=== PATIENT | female | born 1985 | race Caucasian/White ===

== ENCOUNTER 2017-03-20 17:59 | Emergency (ER) | payer OTHER ==
[2017-03-20] MEDS ORDERED: SILVER NITRATE 1 APP APP TOPICAL ONE (18:23)
[2017-03-20] MEDS ORDERED: LIDOCAINE HCL/PF 1% 30 ML VIAL ONE ×2 (18:25→18:26)
--- NOTE | 2017-03-20 18:53 | ER NURSING DOCUMENTATION ---
Nurse's Notes [facility] Name:Nuria Lopez Age:32 yrs Sex:Female :1985 Arrival Date:03/20/2017 Time:17:59 Bed1 Private MD: Diagnosis:Finger Laceration Presentation: 03/20 18:06 Presenting complaint: Patient states: pt cut her left second finger with a potato st tamia. pt took of a section of skin from the side of the the finger pad. wound is bleeding steadily. Transition of care: Home. Complicating Factors: There are no complicating factors for this patient. 18:06 Acuity: DWAYNE 3 st 18:06 Method Of Arrival: Private Vehicle st Triage Assessment: 18:08 General: Appears in no apparent distress, Behavior is cooperative. Pain: Complains of st pain in palmar aspect of distal phalanx of left index finger Pain currently is 5 out of 10 on a pain scale. Injury Description: Avulsion sustained to palmar aspect of distal phalanx of left index finger is complete. Historical: - Allergies: Prednisone; - Home Meds: 1. Zoloft Oral - PMHx: DEPRESSION; ENDOMETROSIS; - PSHx: Appendectomy; HERNIA REPAIR; Appendectomy; - Tetanus: < 10 years. - Ebola Screening: : Patient denies exposure to infectious person. Patient denies travel to an Ebola-affected area in the 21 days before illness onset. . - Social history: Smoking status: Patient uses tobacco products, current every day smoker. Patient/guardian denies using alcohol, marijuana. Screenin:09 Infectious Disease Risk None. Abuse screen: Denies threats or abuse. Denies injuries st from another. pt feels safe at home. Nutritional screening: No deficits noted. Assessment: 18:34 General: wound still oozing after silver nitrate. Pressure dressing applied.. st Vital Signs: 18:03 BP 139 / 86 LA Sitting (auto/lg); Pulse 82 RA; Resp 18 S; Temp 98.6(O); Pulse Ox 94% on em3 R/A; Weight 90.72 kg (R); Height 5 ft. 3 in. (160.02 cm) (R); Pain 5/10; 18:03 Body Mass Index 35.43 (90.72 kg, 160.02 cm) em3 ED Course: 18:01 Patient arrived in ED. em3 18:02 Jeni Minaya, RN is Primary Nurse. st 18:05 Valuables Remains with patient Patient has correct armband on for positive em3 identification. Bed in low position. Call light in reach. 18:[address] 18:16 Rey Valle MD is Attending Physician. be 18:34 Wound care was dressed with cling, Tube Gauze Telfa. st Administered Medications: 18:09 Drug: Silver Nitrate Applicators 1 application; {Note: pulled and administered by Dr. Mendoza. .} Route: Topical; Site: wound; 18:51 Drug: Bacitracin Ointment (500 unit/g) 1 application; Route: Topical; Site: affected mk2 area; Outcome: 18:17 Discharge ordered by MD. be 18:51 Discharged to home ambulatory. mk2 18:51 Condition: good 18:51 Discharge Assessment: Patient awake, alert and oriented x 3. No cognitive and/or functional deficits noted. Patient verbalized understanding of disposition instructions. Pt is not bleeding through bandage. 18:51 Discharge instructions given to patient, Instructed on discharge instructions, follow up and referral plans. medication usage. 18:52 Patient left the ED. mk2 07/ 17:00 Discharge F/U Call: Spoke with: patient. Are you having any pain? yes. Pain level is sj 4 / 10 How are you managing your pain? Have you filled your prescriptions? n/a Did your discharge instructions answer all of your questions? yes Have you made a f/u appointment? No. Signatures: Jeni Minaya, RN Rey Rosenberg MD MD be Kruger, Meg, RN RN [facility] Jeet Torres em3 Lesia Antunez
--- NOTE | 2017-03-20 18:54 | ER PHYSICIAN DOCUMENTATION ---
Physician Documentation [facility] Name:Nuria Lopez Age:32 yrs Sex:Female :1985 Arrival Date:03/20/2017 Time:17:59 Bed1 Private MD: Rey Stephen Disposition: 03/20/17 18:17 Discharged to Home/Self Care. Impression: Finger Laceration. - Condition is Good. - Discharge Instructions: FINGER LACERATION - LACERATION, Hand. - Medical Reconciliation form form. - Follow up: Private Physician; When: As needed; Reason: Continuance of care. - Problem is new. - Symptoms have improved. Historical: - Allergies: Prednisone; - Home Meds: 1. Zoloft Oral - PMHx: DEPRESSION; ENDOMETROSIS; - PSHx: Appendectomy; HERNIA REPAIR; Appendectomy; - Tetanus: < 10 years. - Ebola Screening: : Patient denies exposure to infectious person. Patient denies travel to an Ebola-affected area in the 21 days before illness onset. . - Social history: Smoking status: Patient uses tobacco products, current every day smoker. Patient/guardian denies using alcohol, marijuana. Vital Signs: 03/20 18:03 BP 139 / 86 LA Sitting (auto/lg); Pulse 82 RA; Resp 18 S; Temp 98.6(O); Pulse Ox 94% on em3 R/A; Weight 90.72 kg (R); Height 5 ft. 3 in. (160.02 cm) (R); Pain 5/10; 18:03 Body Mass Index 35.43 (90.72 kg, 160.02 cm) em3 MDM: 18:16 Patient medically screened. be 03/20 18:16 Order name: Wound Care; Complete Time: 18:35 be Dispensed Medications: 18:09 Drug: Silver Nitrate Applicators 1 application; {Note: pulled and administered by Dr. Mendoza. .} Route: Topical; Site: wound; 18:51 Drug: Bacitracin Ointment (500 unit/g) 1 application; Route: Topical; Site: affected mk2 area; Signatures: Jeni Minaya RN RN st Elliott, Brian, MD MD be Kruger, Meg, RN RN [facility]
== END 2017-03-20 18:52 | disposition home or self-care (01) ==
LOC: ER 17:59
DX: S61.211A Laceration without foreign body of left index finger without damage to nail, initial encounter (principal); W27.4XXA Contact with kitchen utensil, initial encounter; Y92.010 Kitchen of single-family (private) house as the place of occurrence of the external cause; Y93.G1 Activity, food preparation and clean up
CPT/HCPCS: 99283